=== PATIENT | male | born 1955 | race Caucasian/White ===

== ENCOUNTER → 2020-02-15 | Outpatient (CLI) | payer OTHER ==
--- NOTE | 2020-02-15 20:44 | Diagnostic Imaging Report ---
PROCEDURE: MRI lumbar spine. TECHNIQUE: Multiplanar, multisequence MRI of the lumbar spine was performed without contrast. DATE: February 15, 2020. COMPARISON: None. INDICATION: 65-year-old male, chronic low back pain. FINDINGS: The alignment of the lumbar spine is unremarkable. There is no evidence of a diffuse marrow infiltrating or replacing process. There is no focal concerning bone lesion. There is no compression deformity or other acute fracture. The visualized cord and conus medullaris is unremarkable and terminates at the L1-L2 level. There is moderate disc height loss at L3-L4 and L5-S1. There is mild diffuse disc bulge at T12-L1. There is no foraminal or spinal stenosis at this level. T12-L1: There is very mild diffuse disc bulge. There are mild bilateral facet degenerative changes without ligamentum flavum hypertrophy. There is no foraminal narrowing. There is no spinal canal stenosis. L1-L2: There is mild diffuse disc bulge. There are mild bilateral facet degenerative changes without ligamentum flavum hypertrophy. There is no foraminal narrowing. There is mild spinal canal stenosis. L2-L3: There is mild diffuse disc bulge. There are mild left facet degenerative changes with ligamentum flavum hypertrophy. There is very mild right foraminal narrowing. There is severe spinal canal stenosis. L3-L4: There is mild diffuse disc bulge. There is a small right paracentral disc protrusion contacting the descending right L4 nerve. The facet joints and ligamentum flavum are unremarkable. There is mild to moderate bilateral foraminal narrowing. There is no spinal canal stenosis. L4-L5: There is mild diffuse disc bulge. The facet joints and ligamentum flavum are unremarkable. There is no foraminal narrowing. There is no spinal canal stenosis. L5-S1: There is mild diffuse disc bulge. There are bilateral facet degenerative changes without ligamentum flavum hypertrophy. There is no foraminal stenosis. There is no spinal stenosis. IMPRESSION: Multilevel degenerative changes of the thoracolumbar spine with foraminal and spinal stenosis as described in detail level by level above. Dictated by: Dictated on workstation # [id number]
== END ==
LOC: RAD 13:15
PROVIDERS: ATTEND Physician Assistant
DX: M47.815 Spondylosis without myelopathy or radiculopathy, thoracolumbar region (principal); M47.817 Spondylosis without myelopathy or radiculopathy, lumbosacral region; M51.27 Other intervertebral disc displacement, lumbosacral region; M48.061 Spinal stenosis, lumbar region without neurogenic claudication
CPT/HCPCS: 72148

== ENCOUNTER → 2022-12-31 | Outpatient (CLI) | payer MEDICARE, OTHER ==
--- NOTE | 2022-12-31 09:27 | Diagnostic Imaging Report ---
INDICATION: Pelvic pain. AP view pelvis shows postoperative changes from internal fixation of the left femur. The pelvic and obturator rings appear to be intact. SI joints are normal. There is mild narrowing of the hip joint spaces. IMPRESSION: Mild degenerative changes of the hips. No acute abnormality is seen. Dictated by: Dictated on workstation # [id number]
--- NOTE | 2022-12-31 09:28 | Diagnostic Imaging Report ---
INDICATION: Low back pain EXAM: Lumbar spine AP and lateral views of the lumbar spine shows slight compression of the T12 vertebral body. There is mild disc space narrowing at each lumbar level with small osteophytes forming anteriorly and laterally. There are degenerative changes of the facet joints. IMPRESSION: Spondylosis deformans. Diffuse degenerative disc disease. Compression fracture at T12 of indeterminate age. Dictated by: Dictated on workstation # [id number]
== END ==
LOC: RAD 08:57
PROVIDERS: ATTEND Chiropractor
DX: M16.0 Bilateral primary osteoarthritis of hip (principal); M51.36 Other intervertebral disc degeneration, lumbar region; M47.816 Spondylosis without myelopathy or radiculopathy, lumbar region; Q78.0 Osteogenesis imperfecta; S22.080A Wedge compression fracture of T11-T12 vertebra, initial encounter for closed fracture; X58.XXXA Exposure to other specified factors, initial encounter
CPT/HCPCS: 72100; 72170